=== PATIENT | male | born 1955 | race Caucasian/White ===

== ENCOUNTER → 2019-01-31 | Outpatient (CLI) | payer MEDICARE ==
--- NOTE | 2019-01-31 16:57 | RAD ---
Nuclear medicine whole body bone scan History: Prostate cancer staging. Comparison: There are no relevant comparison exams. Technique: Examination performed after intravenous administration of 25 mCi Technetium 99m MDP. Images of the whole body were obtained in the anterior and posterior projections. Findings: There is intense tracer uptake of the right and left superior pubic rami, right acetabulum, and the right iliac spine and the right iliac bone adjacent to the upper sacroiliac joint. There is moderate tracer uptake in the right inferior pubic ramus. These may be sites of osteoblastic metastasis, suggest correlation with PSA level. Consider correlation with radiographs. Paget's would be another consideration. There is intense tracer uptake localizing to the right humeral head which could be metastasis or due to fracture or bone infarct. There is increased tracer uptake on the left of the L3, L4, and L5 vertebral bodies. There is increased tracer uptake of a right rib near the costovertebral junction, perhaps the fifth rib. Punctate focus of increased tracer uptake in the midline in the lower thoracic spine could localize to the spinous process. Mild relatively symmetric tracer uptake acromioclavicular, glenohumeral, and sternoclavicular joints may be degenerative. Periarticular tracer uptake medial compartment of the right knee is probably degenerative. Tracer uptake in the ankles is nonspecific. There is greater tracer uptake in the right kidney than in the left which could be due to left renal dysfunction. IMPRESSION: There are foci of intense tracer uptake in the pelvis mainly on the right and in the proximal right humerus. There is less intense tracer uptake in the lower lumbar spine on the left. 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 Please see above discussion. Electronically signed by: Stef Murillo MD (01/31/2019 4:54 PM) [id number]
== END | disposition home or self-care (01) ==
LOC: NM 14:26
PROVIDERS: ATTEND Urology
DX: C61 Malignant neoplasm of prostate (principal); Z87.442 Personal history of urinary calculi
CPT/HCPCS: 78306; A9503

== ENCOUNTER 2019-02-08 05:58 | Day surgery (SDC) | payer MEDICARE ==
[~2019-02-08] VITALS: Ht 165.1 cm; Wt 78.9 kg
[~2019-02-08 05:58] MED LIST: ALPR0.5T PO; BICA50TA47 PO; METH4TAB6 PO
[2019-02-08] MEDS ORDERED: IOHEXOL 300 MG/ML 50 ML VIAL. ONE (06:56)
[2019-02-08] MEDS ORDERED: LIDOCAINE 2% JELLY 6ML IN APPLICATOR. ONE (06:57)
[2019-02-08] MEDS ORDERED: ceFAZolin 2GM PREMIX 2 GM/50 ML BAG IV ONE (07:00)
[2019-02-08] MEDS ORDERED: HYDROmorphone 2 MG/ML VIAL IV PRN (07:00)
[2019-02-08] MEDS ORDERED: MORPHINE SULFATE 2 MG/ML VIAL. IV PRN (07:00)
[2019-02-08] MEDS ORDERED: fentaNYL PF VIAL 100 MCG/2 ML VIAL IV PRN ×2 (07:00)
[2019-02-08] MEDS ORDERED: LIDOCAINE 1% PF 2 ML VIAL. ID PRN (07:00)
[2019-02-08] MEDS ORDERED: ONDANSETRON PF 4 MG/2 ML VIAL. IV PRN (07:00)
[2019-02-08] MEDS ORDERED: IV RINGERS,LACTATED 1000ML 1,000 ML IV SCH (07:00)
[2019-02-08] MEDS ORDERED: PROCHLORPERAZINE 10 MG/2 ML VIAL. IV PRN (07:00)
[2019-02-08] MEDS ORDERED: PROPOFOL 20 ML IV ONE (07:13)
[2019-02-08] MEDS ORDERED: FAMOTIDINE 20 MG/2 ML VIAL ONE (07:13)
[2019-02-08] MEDS ORDERED: ONDANSETRON PF 4 MG/2 ML VIAL. ONE (07:13)
[2019-02-08] MEDS ORDERED: DEXAMETHASONE SOD PHOS 4 MG/ML VIAL ONE ×3 (07:13→07:44)
[2019-02-08] MEDS ORDERED: KETOROLAC 30 MG/ML INJ FOR OR. INJ ONE (07:13)
[2019-02-08] MEDS ORDERED: LIDOCAINE 2% PF 5 ML VIAL. ONE (07:13)
[2019-02-08] MEDS ORDERED: ROCURONIUM 50 MG/5 ML VIAL. ONE (07:14)
[2019-02-08] MEDS ORDERED: fentaNYL PF VIAL 100 MCG/2 ML VIAL ONE (07:14)
[2019-02-08] MEDS ORDERED: MIDAZOLAM HCL/PF 2 MG/2 ML VIAL. ONE (07:14)
[2019-02-08] MEDS ORDERED: ISOSULFAN BLUE 50 MG/5 ML VIAL. SQ ONE ×2 (08:15)
[2019-02-08] MEDS ORDERED: NEOSTIGMINE METHYLSULFATE 5 MG/5 ML SYRINGE. ONE (08:21)
[2019-02-08] MEDS ORDERED: GLYCOPYRROLATE 1 MG/5 ML VIAL. ONE (08:21)
[2019-02-08] MEDS ORDERED: DESFLURANE 31 TO 60 MINUTES IH ONE (08:25)
--- NOTE | 2019-02-08 08:28 | PDOC4 ---
OPERATIVE NOTE Date: Date: Feb 08, 2019 Pre-Op Diagnosis: prostate cancer, bladder tumor, right hydronephrosis Post-Op Diagnosis: same Procedure Performed: cystoscopy, bladder tumor resection, right ureteral stent placement, right retrograde pyelogram Surgeon: Elaina Bernstein MD Anesthesia Type: general Blood Loss: 0 Specimans Obtained: bladder tumor chips Findings: tumor in bladder. moderate/severe right hydronephrosis Complications: none Operative Note: see dictation ELAINA BERNSTEIN MD Feb 08, 2019 08:28
[2019-02-08] MEDS ORDERED: HYDR-3164 PO (08:31)
[2019-02-08] MEDS ORDERED: TOLT4CAP PO (08:31)
--- NOTE | 2019-02-08 08:32 | DISCH ---
DISCHARGE INSTRUCTIONS Condition on Discharge Condition on Discharge: Stable Activity After Discharge Activity Instructions for Disc: No restrictions Diet after Discharge Diet after Discharge: Regular Contacting the DRAbdi after DC Call your doctor for: Fever greater than 100 Follow-Up Follow up with: Dr. Bernstein 4-6 weeks ELAINA BERNSTEIN MD Feb 08, 2019 08:32
--- NOTE | 2019-02-08 08:35 | OP ---
DATE OF SURGERY: 02/08/2019 SURGEON: Elaina Bernstein MD [employer] SPECIALIST: None. PREOPERATIVE DIAGNOSIS: Prostate cancer and hydronephrosis. POSTOPERATIVE DIAGNOSIS: Prostate cancer and hydronephrosis. PROCEDURE PERFORMED: Cystoscopy with transurethral resection of bladder tumor and right ureteral stent placement and right retrograde pyelogram. ANESTHESIA TYPE: General. INDICATIONS OF PROCEDURE: This is a 63-year-old male with advanced prostate cancer. He was found to have tumor involving the floor of the bladder and causing right hydronephrosis. After discussion of risks, benefits and alternatives, he agreed to the above procedure. DESCRIPTION OF PROCEDURE: Informed consent was obtained. The patient was taken to the operating room and general anesthesia was induced. He was placed in the dorsal lithotomy position and sterilely prepped and draped. A timeout was performed. A rigid cystoscope was advanced through the urethra and into the bladder. Within the bladder, there was a solid tumor involving the trigone on the right side. The right ureteral orifice could not be visualized. The tumor was then partially resected and the tumor chips were evacuated. Bleeding points were cauterized. The right ureteral orifice was then visible. A guidewire was advanced and then a right retrograde pyelogram was performed through the urethral catheter, which showed [id number] right hydronephrosis with mildly tortuous ureter. The guidewire was reinserted. A 6 x 26 cm stent was then placed over the wire without difficulty. Urine was seen draining through the stent. Appropriate curl was seen in both ends of the stent. The bladder was emptied and the urine output was crystal clear. The patient was awakened and taken to the recovery room in stable condition. BLOOD LOSS: None. COMPLICATIONS: None. SPECIMEN: Bladder tumor chips. ELAINA BERNSTEIN MD DR: ALLI/mohan JOB#: [id number] / [id number]
[2019-02-08] MEDS ORDERED: HYDROcodone/APAP 10/325 1 TAB TABLET ONE (09:25)
[2019-02-08] MEDS ORDERED: HYDROcodone/APAP 5/325MG 1 TAB TABLET PO ONE (09:30)
[2019-02-08 10:00] VITALS: BP 126/75
--- NOTE | 2019-02-13 18:06 | PATHOLOGY ---
[facility] Accession Number: [id number] . 01 Material submitted: . bladder - BLADDER TUMOR . 01 Clinical history: . Bladder tumor . 01 Frozen section diagnosis: . . /QMS . 02 Diagnosis: Segments of urothelium, lamina propria, and muscular wall, transurethral resection bladder tumor: - INVOLVEMENT BY INVASIVE MODERATELY TO POORLY DIFFERENTIATED PROSTATIC ADENOCARCINOMA. (SEE COMMENT). . (JPM:mml/jaylin; 02/13/2019) [facility]/02/13/2019 . 02 Comment: Sections of the transurethral resection bladder tumor reveal segments of urothelium, lamina propria, and muscular wall. There is extensive tumor involving the muscular wall and lamina propria. The tumor focally infiltrates the lamina propria to just beneath the overlying urothelium. The tumor has a fused gland appearance and focally infiltrates as ragged masses within the muscular wall. . A panel of immunoperoxidase stains is obtained on block A1 and yields the following results: . Cytokeratin 7: Few tumor cells positive; overlying urothelium positive. Cytokeratin 20: Tumor cells negative. High molecular weight cytokeratin: Tumor cells negative; overlying urothelium positive. PSA: Tumor cells positive. PSAP: Tumor cells positive. Thrombomodulin: Tumor cells negative. . The morphologic and immunophenotypic findings are supportive of the diagnosis of bladder involvement by an invasive moderately to poorly differentiated prostatic adenocarcinoma. The case is also examined by Dr. Hinojosa, who concurs with the diagnosis. (JPM:mml/jaylin; 02/13/2019) . Special stains performed: Immunoperoxidase stains for CK7, CK20, high molecular weight cytokeratin, PSA, PSAP, thrombomodulin . 02 Electronically signed: . Fabricio Breaux MD, Pathologist NPI- [id number] . 01 Gross description: . The specimen is received in formalin, labeled "Gene Flanery, bladder tumor". Received are multiple segments of pale mckeon soft tissue measuring 2.5 x 1.9 x 0.5 cm in aggregate dimensions. The specimen is filtered and entirely submitted in cassette A1. (CAA; 02/08/2019) QAC/QAC . 02 Pathologist provided ICD-10: C67.9 . 02 CPT . 129412, [id number], [id number] Specimen Comment: A courtesy copy of this report has been sent to Specimen Comment: [phone], . Specimen Comment: Report sent to and Performed at: 01 [facility] [address], [place], [place] [id number] MD Roberto Huddleston MD Phone: [phone] Performed at: 02 [facility] [address] [place], [place] [id number] MD Fabricio Breaux MD Phone: [phone]
== END 2019-02-08 12:20 | disposition home or self-care (01) ==
LOC: SURG 05:58
PROVIDERS: ATTEND Urology
DX: C79.11 Secondary malignant neoplasm of bladder (principal); C61 Malignant neoplasm of prostate; N13.30 Unspecified hydronephrosis; E78.00 Pure hypercholesterolemia, unspecified; F15.90 Other stimulant use, unspecified, uncomplicated
CPT/HCPCS: 52235; 52332; 76000; 88307; 88341; 88342; A7015; C1713; C1769; C2617; J0696; J1100; J1885; J2001; J2250; J2405; J2704; J2710; J3010; J3490; J7120; Q9967; Q9968